=== PATIENT | male | born 1935 | race African-American/Black ===

== ENCOUNTER 2022-05-07 16:09 | Inpatient (IN) | payer OTHER ==
[2022-05-07 16:47] VITALS: BMI 21.9
[2022-05-07 19:26] LABS: BASO % 0.4 % (0-2.0); EOS % 1.8 % (0-4.5); HEMATOCRIT 38.2 % (35.4-49); HEMOGLOBIN 12.5 GM/dL (11.7-16.9); LYMPH % 20.8 % (8-40); MCH 34.4 pg (25.7-33.7); MCHC 32.8 g/dl (32.0-35.9); MEAN CELL VOLUME 104.9 fl (80-96); MEAN PLT VOLUME 8.9 fl (7.5-11.1); PLATELET COUNT 198 10^3/uL (134-434); RBC 3.65 M/mm3 (4.00-5.60); RDW 14.6 % (11.9-15.9); WHITE BLOOD COUNT 5.4 K/mm3 (4.0-10.0)
[2022-05-07 19:45] LABS: INR 1.05 (0.83-1.09); PROTHROMBIN TIME (PATIENT) 12.1 SEC (9.7-13.0)
[2022-05-07 19:47] LABS: ACTIVATED PTT 26.3 SECONDS (25.2-36.5)
[2022-05-07 19:54] LABS: CALCIUM 9.6 mg/dL (8.5-10.1)
[2022-05-07 19:55] LABS: ALBUMIN 3.4 g/dl (3.4-5.0); BLOOD UREA NITROGEN 20.6 mg/dL (7-18)
[2022-05-07 19:58] LABS: CREATININE 1.3 mg/dL (0.55-1.3)
[2022-05-07 20:00] LABS: BILIRUBIN,TOTAL 0.3 mg/dL (0.2-1); TOT PROT 7.9 g/dl (6.4-8.2)
[2022-05-07] MEDS ORDERED: SODIUM CHLORIDE 0.9% 500 ML INFUS.BAG IV ONE (22:58)
[2022-05-08] MEDS ORDERED: HEPARIN NA (PORCINE) 5,000 UNITS/ML 1ML VIAL SQ ONE (00:14)
[2022-05-08] MEDS ORDERED: amLODIPine BESYLATE 2.5 MG TABLET (FP) PO ONE (00:16)
[2022-05-08] MEDS ORDERED: SODIUM CHLORIDE 1,000 ML IV SCH (00:30)
[2022-05-08] MEDS: INSULIN SLIDING SCALE (NOVOLOG) 1 VIAL SQ SCH ×4 (08:05→22:50)
[2022-05-08 08:06] LABS: HEMATOCRIT 34.6 % (35.4-49); HEMOGLOBIN 11.6 GM/dL (11.7-16.9); MCH 34.3 pg (25.7-33.7); MCHC 33.4 g/dl (32.0-35.9); MEAN CELL VOLUME 102.8 fl (80-96); MEAN PLT VOLUME 8.9 fl (7.5-11.1); PLATELET COUNT 190 10^3/uL (134-434); RBC 3.37 M/mm3 (4.00-5.60); RDW 14.7 % (11.9-15.9); WHITE BLOOD COUNT 5.1 K/mm3 (4.0-10.0)
[2022-05-08 08:29] LABS: BLOOD UREA NITROGEN 16.7 mg/dL (7-18); MAGNESIUM 2.1 mg/dL (1.8-2.4)
[2022-05-08 08:30] LABS: CREATININE 1.1 mg/dL (0.55-1.3); PHOSPHOROUS 2.9 mg/dL (2.5-4.9)
[2022-05-08 08:32] LABS: BILIRUBIN,TOTAL 0.6 mg/dL (0.2-1); TOT PROT 6.8 g/dl (6.4-8.2)
[2022-05-08] MEDS: amLODIPine BESYLATE 2.5 MG TABLET (FP) PO SCH (09:41)
[2022-05-08] MEDS: ENOXAPARIN NA (PORCINE) 40 MG/0.4 ML DISP.SYRIN SQ SCH (09:41)
[2022-05-08] MEDS: THIAMINE HCL 100 MG TABLET (FP) PO SCH ×2 (09:41→22:50)
[2022-05-08 12:27] LABS: EPI CELLS 3 /uL (0-25.1); HYALINE CASTS 0 /uL (0-3.1); URINE APPEARANCE CLEAR; URINE BILIRUBIN NEGATIVE (NEGATIVE); URINE COLOR YELLOW; URINE GLUCOSE (UA) NEGATIVE (NEGATIVE); URINE KETONE NEGATIVE (NEGATIVE); URINE LEUK ESTERASE NEGATIVE (NEGATIVE); URINE NITRITE POSITIVE (NEGATIVE); URINE PROTEIN NEGATIVE (NEGATIVE); URINE RBC 16 /uL (0-23.9); URINE UROBILINOGEN 0.2 mg/dL (0.2-1.0); URINE WBC 10 /uL (0-25.8)
[2022-05-08 13:44] LABS: URINE BACTERIA 324 /uL (0-1359)
[2022-05-08] MEDS: metoPROLOL SUCCINATE 25 MG TAB.SR.24H (FP) PO SCH (16:32)
[2022-05-09] MEDS ORDERED: hydrOXYzine PAMOATE 25 MG CAPSULE (FP) PO ONE (01:38)
[2022-05-09] MEDS: INSULIN SLIDING SCALE (NOVOLOG) 1 VIAL SQ SCH ×3 (09:13→16:48)
[2022-05-09] MEDS: ENOXAPARIN NA (PORCINE) 40 MG/0.4 ML DISP.SYRIN SQ SCH (09:39)
[2022-05-09] MEDS: metoPROLOL SUCCINATE 25 MG TAB.SR.24H (FP) PO SCH (09:39)
[2022-05-09] MEDS: amLODIPine BESYLATE 2.5 MG TABLET (FP) PO SCH (09:39)
[2022-05-09] MEDS: THIAMINE HCL 100 MG TABLET (FP) PO SCH ×2 (09:39→21:42)
[2022-05-09 12:19] LABS: HEMATOCRIT 36.6 % (35.4-49); HEMOGLOBIN 12.3 GM/dL (11.7-16.9); MCH 35.3 pg (25.7-33.7); MCHC 33.6 g/dl (32.0-35.9); MEAN CELL VOLUME 105.1 fl (80-96); MEAN PLT VOLUME 8.6 fl (7.5-11.1); PLATELET COUNT 181 10^3/uL (134-434); RBC 3.48 M/mm3 (4.00-5.60); RDW 14.6 % (11.9-15.9); WHITE BLOOD COUNT 5.3 K/mm3 (4.0-10.0)
[2022-05-09 14:31] LABS: ALBUMIN 3.1 g/dl (3.4-5.0); BILIRUBIN,TOTAL 0.4 mg/dL (0.2-1); BLOOD UREA NITROGEN 16.7 mg/dL (7-18); CALCIUM 9.2 mg/dL (8.5-10.1); CHOLESTEROL 195 mg/dL (50-200); CREATININE 1.1 mg/dL (0.55-1.3); HDL CHOLESTEROL 80 mg/dL (40-60); LDL CHOLESTEROL (ONLY SJRH) 98 mg/dL (5-100); TOT PROT 7.4 g/dl (6.4-8.2); TRIGLYCERIDES 90 mg/dL (0-150)
[2022-05-09] MEDS: ATORVASTATIN CA 20 MG TABLET (FP) PO SCH (21:44)
[2022-05-10] MEDS: ASPIRIN 81 MG CHEWABLE TABLETS PO SCH (09:21)
[2022-05-10] MEDS: INSULIN SLIDING SCALE (NOVOLOG) 1 VIAL SQ SCH ×5 (09:21→21:57)
[2022-05-10] MEDS: ENOXAPARIN NA (PORCINE) 40 MG/0.4 ML DISP.SYRIN SQ SCH (09:21)
[2022-05-10] MEDS: amLODIPine BESYLATE 2.5 MG TABLET (FP) PO SCH (09:22)
[2022-05-10] MEDS: THIAMINE HCL 100 MG TABLET (FP) PO SCH ×2 (09:22→21:43)
[2022-05-10] MEDS: metoPROLOL SUCCINATE 25 MG TAB.SR.24H (FP) PO SCH (09:22)
[2022-05-10] MEDS: ATORVASTATIN CA 20 MG TABLET (FP) PO SCH (21:44)
[2022-05-11] MEDS: INSULIN SLIDING SCALE (NOVOLOG) 1 VIAL SQ SCH ×4 (07:33→21:48)
[2022-05-11] MEDS: THIAMINE HCL 100 MG TABLET (FP) PO SCH ×2 (10:00→21:30)
[2022-05-11] MEDS: metoPROLOL SUCCINATE 25 MG TAB.SR.24H (FP) PO SCH (10:00)
[2022-05-11] MEDS: ASPIRIN 81 MG CHEWABLE TABLETS PO SCH (10:00)
[2022-05-11] MEDS: ENOXAPARIN NA (PORCINE) 40 MG/0.4 ML DISP.SYRIN SQ SCH (10:00)
[2022-05-11] MEDS: amLODIPine BESYLATE 2.5 MG TABLET (FP) PO SCH (10:00)
[2022-05-11] MEDS: ATORVASTATIN CA 20 MG TABLET (FP) PO SCH (21:30)
[2022-05-11] MEDS: AMOXICILLIN 500 MG CAPSULE (FP) PO SCH (22:10)
[2022-05-12] MEDS: INSULIN SLIDING SCALE (NOVOLOG) 1 VIAL SQ SCH ×4 (06:15→21:38)
[2022-05-12] MEDS: THIAMINE HCL 100 MG TABLET (FP) PO SCH ×2 (09:51→21:09)
[2022-05-12] MEDS: ENOXAPARIN NA (PORCINE) 40 MG/0.4 ML DISP.SYRIN SQ SCH (09:51)
[2022-05-12] MEDS: ASPIRIN 81 MG CHEWABLE TABLETS PO SCH (09:51)
[2022-05-12] MEDS: amLODIPine BESYLATE 2.5 MG TABLET (FP) PO SCH (09:52)
[2022-05-12] MEDS: metoPROLOL SUCCINATE 25 MG TAB.SR.24H (FP) PO SCH (09:52)
[2022-05-12] MEDS: AMOXICILLIN 500 MG CAPSULE (FP) PO SCH ×2 (09:54→21:09)
[2022-05-12 10:45] LABS: HEMATOCRIT 38.2 % (35.4-49); MCH 35.7 pg (25.7-33.7); MCHC 33.9 g/dl (32.0-35.9); MEAN CELL VOLUME 105.2 fl (80-96); MEAN PLT VOLUME 8.6 fl (7.5-11.1); PLATELET COUNT 229 10^3/uL (134-434); RBC 3.63 M/mm3 (4.00-5.60); RDW 14.2 % (11.9-15.9); WHITE BLOOD COUNT 5.6 K/mm3 (4.0-10.0)
[2022-05-12 11:04] LABS: BLOOD UREA NITROGEN 27.6 mg/dL (7-18)
[2022-05-12 11:06] LABS: CREATININE 1.3 mg/dL (0.55-1.3)
[2022-05-12 11:09] LABS: BILIRUBIN,TOTAL 0.4 mg/dL (0.2-1); TOT PROT 7.4 g/dl (6.4-8.2)
[2022-05-12] MEDS: ATORVASTATIN CA 20 MG TABLET (FP) PO SCH (21:09)
[2022-05-13] MEDS: INSULIN SLIDING SCALE (NOVOLOG) 1 VIAL SQ SCH ×4 (06:13→22:29)
[2022-05-13] MEDS: THIAMINE HCL 100 MG TABLET (FP) PO SCH ×2 (10:23→22:05)
[2022-05-13] MEDS: metoPROLOL SUCCINATE 25 MG TAB.SR.24H (FP) PO SCH (10:23)
[2022-05-13] MEDS: amLODIPine BESYLATE 2.5 MG TABLET (FP) PO SCH (10:23)
[2022-05-13] MEDS: ENOXAPARIN NA (PORCINE) 40 MG/0.4 ML DISP.SYRIN SQ SCH (10:23)
[2022-05-13] MEDS: AMOXICILLIN 500 MG CAPSULE (FP) PO SCH ×2 (10:23→22:05)
[2022-05-13] MEDS: ASPIRIN 81 MG CHEWABLE TABLETS PO SCH (10:23)
[2022-05-13] MEDS: DOCUSATE SODIUM 100 MG CAPSULE (FP) PO SCH ×2 (13:56→22:05)
[2022-05-13] MEDS: POLYETHYLENE GLYCOL (HEALTHYLAX) 3350 17 GM PACKET PO SCH (13:56)
[2022-05-13] MEDS ORDERED: PNEUMOC 20-VAL CONJ-DIP CRM/PF 0.5 ML SYRINGE IM ONE (16:00)
[2022-05-13] MEDS: ATORVASTATIN CA 20 MG TABLET (FP) PO SCH (22:05)
[2022-05-14] MEDS: INSULIN SLIDING SCALE (NOVOLOG) 1 VIAL SQ SCH ×2 (06:33→11:43)
[2022-05-14 06:35] VITALS: RESP 18
[2022-05-14] MEDS: metoPROLOL SUCCINATE 25 MG TAB.SR.24H (FP) PO SCH (11:37)
[2022-05-14] MEDS: POLYETHYLENE GLYCOL (HEALTHYLAX) 3350 17 GM PACKET PO SCH (11:37)
[2022-05-14] MEDS: THIAMINE HCL 100 MG TABLET (FP) PO SCH (11:37)
[2022-05-14] MEDS: ASPIRIN 81 MG CHEWABLE TABLETS PO SCH (11:37)
[2022-05-14] MEDS: ENOXAPARIN NA (PORCINE) 40 MG/0.4 ML DISP.SYRIN SQ SCH (11:37)
[2022-05-14] MEDS: DOCUSATE SODIUM 100 MG CAPSULE (FP) PO SCH (11:38)
[2022-05-14] MEDS: amLODIPine BESYLATE 2.5 MG TABLET (FP) PO SCH (11:38)
[2022-05-14] MEDS: AMOXICILLIN 500 MG CAPSULE (FP) PO SCH (11:39)
[2022-05-14 15:42] VITALS: BP 143/74; PULSE 84; TEMP 98.7
== END 2022-05-14 16:43 | DRG 309 ==
LOC: JER 16:09 → JERBED 21:29 → OBSVTOIN 05-08 00:15 → J4W 05-08 01:05 → J5S 05-11 18:17
PROVIDERS: ADMIT Internal Medicine; ATTEND Internal Medicine
DX: I47.20 Ventricular tachycardia, unspecified (principal); N39.0 Urinary tract infection, site not specified; R55 Syncope and collapse; E11.9 Type 2 diabetes mellitus without complications; F03.90 Unspecified dementia, unspecified severity, without behavioral disturbance, psychotic disturbance, mood disturbance, and anxiety; I10 Essential (primary) hypertension
CPT/HCPCS: 0241U-QW; 36415; 70450-TC; 70544-TC; 71045-TC-FY; 80053; 80061; 81003; 82550; 82553; 82607; 82746; 82962; 83036; 83735; 84100; 84443; 84484; 85025; 85027; 85610; 85730; 86780; 86850; 86900; 86901; 87086; 87186; 90677; 93005; 93010; 93306-TC; 93880-TC; 97116-GP; 97162-GP; 99285-25; C9803-CS; G0378; U0003; U0005

== ENCOUNTER 2022-07-23 21:01 | Inpatient (IN) | payer OTHER ==
[2022-07-23] MEDS ORDERED: SODIUM CHLORIDE 0.9% 500 ML INFUS.BAG IV ONE (21:47)
[2022-07-23] MEDS ORDERED: PIPERACILLIN/TAZOB 4.5 GM 4.5 GM in DEXTROSE 5%-WATER 100 ML IVPB ONE (21:47)
[2022-07-23] MEDS ORDERED: VANCOMYCIN 1 GM in D5W (PRE-DOCKED) 1,000 MG/250 ML IVPB ONE (21:47)
[2022-07-23] MEDS ORDERED: ACETAMINOPHEN 1000 MG/100 ML BAG IVPB ONE (21:47)
[2022-07-23] MEDS ORDERED: ACETAMINOPHEN INJECTION 100 ML IVPB ONE (23:11)
[2022-07-23] MEDS ORDERED: PIPERACILLIN/TAZOB 4.5 GM 4.5 GM/100 ML BAG IVPB ONE (23:12)
[2022-07-23 23:16] LABS: VENOUS BASE EXCESS -7.7 mmol/L (-2-2); VENOUS O2 SATURATION 36.7 % (70-80); VENOUS PCO2 46.7 mmHg (38-52); VENOUS PH 7.24 (7.310-7.410)
[2022-07-23 23:21] LABS: HEMATOCRIT 37.5 % (35.4-49); HEMOGLOBIN 11.8 GM/dL (11.7-16.9); MCH 33.5 pg (25.7-33.7); MCHC 31.6 g/dl (32.0-35.9); MEAN CELL VOLUME 106.1 fl (80-96); MEAN PLT VOLUME 10.7 fl (7.5-11.1); PLATELET COUNT 135 10^3/uL (134-434); RBC 3.54 M/mm3 (4.00-5.60); RDW 13.9 % (11.9-15.9); WHITE BLOOD COUNT 18.6 K/mm3 (4.0-10.0)
[2022-07-23 23:24] LABS: ADD RBC MORPHOLOGY YES
[2022-07-23 23:37] LABS: CHLORIDE 132 mmol/L (98-107)
[2022-07-23 23:39] LABS: ALBUMIN 2.3 g/dl (3.4-5.0); CALCIUM 8.7 mg/dL (8.5-10.1); CO2 21 mmol/L (21-32)
[2022-07-23 23:42] LABS: CREATININE 4.1 mg/dL (0.55-1.3); SGOT/AST 53 U/L (15-37); SGPT/ALT 22 U/L (13-61)
[2022-07-23 23:44] LABS: BILIRUBIN,TOTAL 0.4 mg/dL (0.2-1); TOT PROT 6.9 g/dl (6.4-8.2)
[2022-07-23 23:45] LABS: ALK PHOS 82 U/L (45-117); LACTIC ACID 5.5 mmol/L (0.4-2.0)
[2022-07-23 23:50] LABS: ANION GAP 12 MMOL/L (8-16); BLOOD UREA NITROGEN 137.1 mg/dL (7-18); GLUCOSE,RANDOM 411 mg/dL (74-106); SODIUM 165 mmol/L (136-145)
[2022-07-24] MEDS ORDERED: MIDAZOLAM HCL 5 MG/1 ML Single Dose Vial IVPUSH ONE (00:50)
[2022-07-24] MEDS ORDERED: SODIUM CHLORIDE 0.45% 1,000 ML IV SCH (01:15)
[2022-07-24] MEDS ORDERED: MIDAZOLAM HCL 5 MG/1 ML Single Dose Vial ONE (01:24)
[2022-07-24] MEDS ORDERED: MIDAZOLAM HCL 2 MG/2 ML SINGLE DOSE VIAL IVPUSH ONE (02:26)
[2022-07-24] MEDS: MUPIROCIN 2% TOPICAL OINTMENT FOR DECOLONIZATION NS SCH ×3 (02:38→21:06)
[2022-07-24] MEDS: INSULIN SLIDING SCALE (NOVOLOG) 1 VIAL SQ SCH ×6 (02:45→21:43)
[2022-07-24] MEDS ORDERED: INSULIN SLIDING SCALE (NOVOLOG) 1 VIAL SQ SCH (07:00)
[2022-07-24 07:31] LABS: TOXIC GRANULATION 3+
[2022-07-24 07:32] LABS: ANISOCYTOSIS 0; MACROCYTOSIS 1+
[2022-07-24 08:56] LABS: BASO % 0.1 % (0-2.0); HEMATOCRIT 38.9 % (35.4-49); HEMOGLOBIN 12.1 GM/dL (11.7-16.9); LYMPH % 9.2 % (8-40); MCH 33.1 pg (25.7-33.7); MCHC 31.2 g/dl (32.0-35.9); MEAN PLT VOLUME 10.2 fl (7.5-11.1); MONO % 2.8 % (3.8-10.2); NEUT % 87.9 % (42.8-82.8); PLATELET COUNT 125 10^3/uL (134-434); RBC 3.67 M/mm3 (4.00-5.60); RDW 14.1 % (11.9-15.9)
[2022-07-24 08:59] LABS: INR 1.22 (0.83-1.09); PROTHROMBIN TIME (PATIENT) 14.1 SEC (9.7-13.0)
[2022-07-24] MEDS ORDERED: PIPERACILLIN/TAZOB 2.25 GM 2.25 GM in DEXTROSE 5%-WATER - 50 ML IVPB SCH (09:00)
[2022-07-24 09:13] LABS: CHLORIDE 131 mmol/L (98-107)
[2022-07-24 09:18] LABS: CALCIUM 8.6 mg/dL (8.5-10.1); GLUCOSE,RANDOM 398 mg/dL (74-106)
[2022-07-24 09:19] LABS: ALBUMIN 2.4 g/dl (3.4-5.0); CO2 20 mmol/L (21-32); MAGNESIUM 3.6 mg/dL (1.8-2.4)
[2022-07-24 09:21] LABS: LACTIC ACID 3.4 mmol/L (0.4-2.0); PHOSPHOROUS 5.8 mg/dL (2.5-4.9); SGPT/ALT 32 U/L (13-61)
[2022-07-24 09:22] LABS: CREATININE 3.8 mg/dL (0.55-1.3); SGOT/AST 84 U/L (15-37)
[2022-07-24 09:23] LABS: BILIRUBIN,TOTAL 0.4 mg/dL (0.2-1)
[2022-07-24 09:24] LABS: ALK PHOS 86 U/L (45-117)
[2022-07-24] MEDS: PANTOPRAZOLE SODIUM 40 MG VIAL IVPUSH SCH (09:29)
[2022-07-24 09:30] LABS: ANION GAP 13 MMOL/L (8-16); BLOOD UREA NITROGEN 133.3 mg/dL (7-18); SODIUM 164 mmol/L (136-145)
[2022-07-24] MEDS ORDERED: DEXTROSE 5%-0.45% SALINE 1,000 ML IV SCH (11:45)
[2022-07-24] MEDS ORDERED: POTASSIUM CHLORIDE 10 MEQ in SODIUM CHLORIDE 0.45% 1,000 ML IVPB SCH (12:00)
[2022-07-24 14:09] LABS: CHLORIDE 137 mmol/L (98-107)
[2022-07-24 14:10] LABS: CALCIUM 8.9 mg/dL (8.5-10.1)
[2022-07-24 14:11] LABS: ALBUMIN 2.4 g/dl (3.4-5.0); CO2 24 mmol/L (21-32); GLUCOSE,RANDOM 77 mg/dL (74-106)
[2022-07-24 14:13] LABS: SGPT/ALT 33 U/L (13-61)
[2022-07-24 14:14] LABS: CREATININE 3.2 mg/dL (0.55-1.3); SGOT/AST 89 U/L (15-37)
[2022-07-24 14:15] LABS: BILIRUBIN,TOTAL 0.6 mg/dL (0.2-1); TOT PROT 7.2 g/dl (6.4-8.2)
[2022-07-24 14:17] LABS: ALK PHOS 85 U/L (45-117)
[2022-07-24 14:21] LABS: ANION GAP 7 MMOL/L (8-16); BLOOD UREA NITROGEN 119.9 mg/dL (7-18); SODIUM 168 mmol/L (136-145)
[2022-07-24] MEDS: PIPERACILLIN/TAZOB 2.25 GM 2.25 GM in DEXTROSE 5%-WATER - 50 ML IVPB SCH ×2 (15:54→21:06)
[2022-07-24] MEDS: DEXTROSE 5%-0.2% SALINE - 1,000 ML IV SCH (18:15)
[2022-07-24 18:39] LABS: EPI CELLS 3 /uL (0-25.1); HYALINE CASTS 0 /uL (0-3.1); URINE APPEARANCE TURBID; URINE BACTERIA 48 /uL (0-1359); URINE BILIRUBIN NEGATIVE (NEGATIVE); URINE COLOR RED; URINE GLUCOSE (UA) NEGATIVE (NEGATIVE); URINE KETONE NEGATIVE (NEGATIVE); URINE LEUK ESTERASE 3+ (NEGATIVE); URINE NITRITE NEGATIVE (NEGATIVE); URINE PROTEIN 2+ (NEGATIVE); URINE UROBILINOGEN 0.2 mg/dL (0.2-1.0); URINE WBC 4256 /uL (0-25.8)
[2022-07-24 19:45] LABS: YEAST NONE SEEN (NEGATIVE)
[2022-07-24 19:46] LABS: URINE RBC 11824.9 /uL (0-23.9)
[2022-07-24] MEDS: CHLORHEXIDINE GLUCONATE 4% CLEANSER FOR DECOLONIZATION TP SCH (21:06)
[2022-07-25] MEDS: PIPERACILLIN/TAZOB 2.25 GM 2.25 GM in DEXTROSE 5%-WATER - 50 ML IVPB SCH ×4 (03:28→21:11)
[2022-07-25] MEDS: INSULIN SLIDING SCALE (NOVOLOG) 1 VIAL SQ SCH ×4 (06:28→21:21)
[2022-07-25 08:41] LABS: BASO % 0.2 % (0-2.0); EOS % 0.5 % (0-4.5); HEMATOCRIT 35.9 % (35.4-49); HEMOGLOBIN 11.3 GM/dL (11.7-16.9); LYMPH % 6.2 % (8-40); MCH 33.2 pg (25.7-33.7); MCHC 31.5 g/dl (32.0-35.9); MEAN CELL VOLUME 105.3 fl (80-96); MEAN PLT VOLUME 10.5 fl (7.5-11.1); MONO % 2.7 % (3.8-10.2); NEUT % 90.4 % (42.8-82.8); PLATELET COUNT 108 10^3/uL (134-434); RBC 3.41 M/mm3 (4.00-5.60); WHITE BLOOD COUNT 17.8 K/mm3 (4.0-10.0)
[2022-07-25 09:04] LABS: CHLORIDE 135 mmol/L (98-107)
[2022-07-25 09:06] LABS: CALCIUM 8.9 mg/dL (8.5-10.1)
[2022-07-25 09:07] LABS: ALBUMIN 2.3 g/dl (3.4-5.0); BLOOD UREA NITROGEN 98.1 mg/dL (7-18); CO2 20 mmol/L (21-32); GLUCOSE,RANDOM 357 mg/dL (74-106)
[2022-07-25 09:10] LABS: CREATININE 2.5 mg/dL (0.55-1.3); PHOSPHOROUS 3.1 mg/dL (2.5-4.9); SGOT/AST 78 U/L (15-37); SGPT/ALT 36 U/L (13-61)
[2022-07-25 09:11] LABS: BILIRUBIN,TOTAL 0.5 mg/dL (0.2-1); TOT PROT 6.9 g/dl (6.4-8.2)
[2022-07-25 09:13] LABS: ALK PHOS 83 U/L (45-117)
[2022-07-25 09:14] LABS: ANION GAP 9 MMOL/L (8-16); SODIUM 164 mmol/L (136-145)
[2022-07-25] MEDS: MUPIROCIN 2% TOPICAL OINTMENT FOR DECOLONIZATION NS SCH ×2 (09:40→21:11)
[2022-07-25] MEDS: PANTOPRAZOLE SODIUM 40 MG VIAL IVPUSH SCH (09:41)
[2022-07-25] MEDS: DEXTROSE 5%-0.2% SALINE - 1,000 ML IV SCH (16:51)
[2022-07-25] MEDS: CHLORHEXIDINE GLUCONATE 4% CLEANSER FOR DECOLONIZATION TP SCH (21:11)
[2022-07-26] MEDS: PIPERACILLIN/TAZOB 2.25 GM 2.25 GM in DEXTROSE 5%-WATER - 50 ML IVPB SCH ×2 (02:34→09:30)
[2022-07-26] MEDS: INSULIN SLIDING SCALE (NOVOLOG) 1 VIAL SQ SCH ×4 (06:36→21:03)
[2022-07-26 07:38] LABS: HEMOGLOBIN 11.3 GM/dL (11.7-16.9); MCHC 30.5 g/dl (32.0-35.9); MEAN CELL VOLUME 104.9 fl (80-96); MEAN PLT VOLUME 10.2 fl (7.5-11.1); PLATELET COUNT 89 10^3/uL (134-434); RBC 3.53 M/mm3 (4.00-5.60); RDW 14.5 % (11.9-15.9); WHITE BLOOD COUNT 13.3 K/mm3 (4.0-10.0)
[2022-07-26 07:58] LABS: CHLORIDE 138 mmol/L (98-107)
[2022-07-26 08:03] LABS: ALBUMIN 2.4 g/dl (3.4-5.0); CALCIUM 9.5 mg/dL (8.5-10.1); CO2 23 mmol/L (21-32); MAGNESIUM 3.6 mg/dL (1.8-2.4)
[2022-07-26 08:04] LABS: GLUCOSE,RANDOM 296 mg/dL (74-106)
[2022-07-26 08:06] LABS: CREATININE 2.1 mg/dL (0.55-1.3); PHOSPHOROUS 2.9 mg/dL (2.5-4.9); SGPT/ALT 40 U/L (13-61)
[2022-07-26 08:07] LABS: SGOT/AST 60 U/L (15-37)
[2022-07-26 08:08] LABS: BILIRUBIN,TOTAL 0.5 mg/dL (0.2-1)
[2022-07-26 08:09] LABS: ALK PHOS 85 U/L (45-117)
[2022-07-26 08:17] LABS: ANION GAP 7 MMOL/L (8-16); SODIUM 168 mmol/L (136-145)
[2022-07-26] MEDS: PANTOPRAZOLE SODIUM 40 MG VIAL IVPUSH SCH (09:30)
[2022-07-26] MEDS: MUPIROCIN 2% TOPICAL OINTMENT FOR DECOLONIZATION NS SCH (09:30)
[2022-07-26] MEDS: DEXTROSE 5%-WATER - 1,000 ML IV SCH ×2 (10:43→18:03)
[2022-07-26] MEDS: CEFTRIAXONE 2 GM in DEXTROSE 5%-WATER 100 ML IVPB SCH (11:28)
[2022-07-26] MEDS ORDERED: MUPIROCIN 2% TOPICAL OINTMENT FOR DECOLONIZATION NS SCH (22:00)
[2022-07-26] MEDS ORDERED: CHLORHEXIDINE GLUCONATE 4% CLEANSER FOR DECOLONIZATION TP SCH (22:00)
[2022-07-27] MEDS: INSULIN SLIDING SCALE (NOVOLOG) 1 VIAL SQ SCH ×4 (06:22→21:53)
[2022-07-27] MEDS: MULTIVITAMINS (DAILY MVI) TABLET (FP) PO SCH (09:46)
[2022-07-27] MEDS: PANTOPRAZOLE SODIUM 40 MG VIAL IVPUSH SCH (09:46)
[2022-07-27] MEDS: DEXTROSE 5%-WATER - 1,000 ML IV SCH ×2 (09:46→13:21)
[2022-07-27] MEDS: CEFTRIAXONE 2 GM in DEXTROSE 5%-WATER 100 ML IVPB SCH (09:46)
[2022-07-27 09:57] LABS: HEMATOCRIT 32.2 % (35.4-49); HEMOGLOBIN 10.1 GM/dL (11.7-16.9); MCH 32.7 pg (25.7-33.7); MCHC 31.3 g/dl (32.0-35.9); MEAN CELL VOLUME 104.4 fl (80-96); MEAN PLT VOLUME 10.7 fl (7.5-11.1); PLATELET COUNT 76 10^3/uL (134-434); RBC 3.09 M/mm3 (4.00-5.60); RDW 14.4 % (11.9-15.9); WHITE BLOOD COUNT 14.1 K/mm3 (4.0-10.0)
[2022-07-27 10:01] LABS: CHLORIDE 140 mmol/L (98-107)
[2022-07-27 10:05] LABS: ALBUMIN 2.2 g/dl (3.4-5.0); BLOOD UREA NITROGEN 51.2 mg/dL (7-18); CO2 21 mmol/L (21-32); GLUCOSE,RANDOM 302 mg/dL (74-106); MAGNESIUM 3.3 mg/dL (1.8-2.4)
[2022-07-27 10:08] LABS: CREATININE 1.9 mg/dL (0.55-1.3); PHOSPHOROUS 2.1 mg/dL (2.5-4.9); SGOT/AST 37 U/L (15-37); SGPT/ALT 36 U/L (13-61)
[2022-07-27 10:09] LABS: TOT PROT 6.7 g/dl (6.4-8.2)
[2022-07-27 10:10] LABS: BILIRUBIN,TOTAL 0.3 mg/dL (0.2-1)
[2022-07-27 10:11] LABS: ALK PHOS 83 U/L (45-117)
[2022-07-27 10:16] LABS: ANION GAP 6 MMOL/L (8-16); SODIUM 167 mmol/L (136-145)
[2022-07-27] MEDS ORDERED: INSULIN (NOVOLOG) ASPART 100 UNITS/ML 10ML VIAL ONE ×2 (10:41→16:34)
[2022-07-27] MEDS: POTASSIUM CHLORIDE 10 MEQ in SODIUM CHLORIDE 0.45% 1,000 ML IVPB SCH (20:27)
[2022-07-28] MEDS: POTASSIUM CHLORIDE 10 MEQ in SODIUM CHLORIDE 0.45% 1,000 ML IVPB SCH ×2 (04:30→13:50)
[2022-07-28] MEDS: INSULIN SLIDING SCALE (NOVOLOG) 1 VIAL SQ SCH ×4 (06:31→21:31)
[2022-07-28 09:40] LABS: HEMATOCRIT 33.3 % (35.4-49); HEMOGLOBIN 10.2 GM/dL (11.7-16.9); MCH 32.4 pg (25.7-33.7); MCHC 30.6 g/dl (32.0-35.9); MEAN CELL VOLUME 105.7 fl (80-96); MEAN PLT VOLUME 11.1 fl (7.5-11.1); PLATELET COUNT 87 10^3/uL (134-434); RBC 3.15 M/mm3 (4.00-5.60); RDW 14.7 % (11.9-15.9); WHITE BLOOD COUNT 15.6 K/mm3 (4.0-10.0)
[2022-07-28 09:58] LABS: CHLORIDE 136 mmol/L (98-107)
[2022-07-28 10:00] LABS: CALCIUM 9.1 mg/dL (8.5-10.1)
[2022-07-28 10:01] LABS: ALBUMIN 2.2 g/dl (3.4-5.0); BLOOD UREA NITROGEN 40.7 mg/dL (7-18); CO2 21 mmol/L (21-32); GLUCOSE,RANDOM 303 mg/dL (74-106)
[2022-07-28 10:04] LABS: CREATININE 1.9 mg/dL (0.55-1.3); PHOSPHOROUS 2.1 mg/dL (2.5-4.9); SGOT/AST 43 U/L (15-37); SGPT/ALT 39 U/L (13-61)
[2022-07-28 10:05] LABS: BILIRUBIN,TOTAL 0.4 mg/dL (0.2-1); TOT PROT 6.8 g/dl (6.4-8.2)
[2022-07-28 10:07] LABS: ALK PHOS 87 U/L (45-117)
[2022-07-28] MEDS: MULTIVITAMINS (DAILY MVI) TABLET (FP) PO SCH (10:15)
[2022-07-28] MEDS: CEFTRIAXONE 1 GM in DEXTROSE 5%-WATER - 50 ML IVPB SCH (10:15)
[2022-07-28] MEDS: PANTOPRAZOLE SODIUM 40 MG VIAL IVPUSH SCH (10:15)
[2022-07-28 10:17] LABS: ANION GAP 9 MMOL/L (8-16); SODIUM 166 mmol/L (136-145)
[2022-07-28 17:46] VITALS: BMI 19.8
[2022-07-28] MEDS ORDERED: INSULIN (NOVOLOG) ASPART 100 UNITS/ML 10ML VIAL ONE (21:28)
[2022-07-29] MEDS: POTASSIUM CHLORIDE 10 MEQ in SODIUM CHLORIDE 0.45% 1,000 ML IVPB SCH ×3 (03:00→10:15)
[2022-07-29] MEDS: INSULIN SLIDING SCALE (NOVOLOG) 1 VIAL SQ SCH ×4 (06:13→22:32)
[2022-07-29 08:22] LABS: BASO % 0.1 % (0-2.0); HEMATOCRIT 30.8 % (35.4-49); HEMOGLOBIN 9.8 GM/dL (11.7-16.9); LYMPH % 16.2 % (8-40); MCH 33.1 pg (25.7-33.7); MCHC 31.8 g/dl (32.0-35.9); MEAN CELL VOLUME 104.4 fl (80-96); MEAN PLT VOLUME 10.7 fl (7.5-11.1); NEUT % 76.7 % (42.8-82.8); PLATELET COUNT 92 10^3/uL (134-434); RBC 2.95 M/mm3 (4.00-5.60); RDW 14.4 % (11.9-15.9)
[2022-07-29 08:42] LABS: CHLORIDE 138 mmol/L (98-107)
[2022-07-29 08:47] LABS: CALCIUM 8.5 mg/dL (8.5-10.1); CO2 22 mmol/L (21-32); GLUCOSE,RANDOM 199 mg/dL (74-106); MAGNESIUM 2.8 mg/dL (1.8-2.4)
[2022-07-29 08:49] LABS: SGPT/ALT 38 U/L (13-61)
[2022-07-29 08:50] LABS: CREATININE 1.7 mg/dL (0.55-1.3); PHOSPHOROUS 2.3 mg/dL (2.5-4.9); SGOT/AST 37 U/L (15-37)
[2022-07-29 08:51] LABS: BILIRUBIN,TOTAL 0.4 mg/dL (0.2-1); TOT PROT 6.3 g/dl (6.4-8.2)
[2022-07-29 08:52] LABS: ALK PHOS 76 U/L (45-117); ANION GAP 4 MMOL/L (8-16); SODIUM 165 mmol/L (136-145)
[2022-07-29] MEDS: PANTOPRAZOLE SODIUM 40 MG VIAL IVPUSH SCH (09:06)
[2022-07-29] MEDS: MULTIVITAMINS (DAILY MVI) TABLET (FP) PO SCH (09:06)
[2022-07-29] MEDS: CEFTRIAXONE 1 GM in DEXTROSE 5%-WATER - 50 ML IVPB SCH (09:06)
[2022-07-29] MEDS ORDERED: INSULIN (NOVOLOG) ASPART 100 UNITS/ML 10ML VIAL ONE (10:57)
[2022-07-29] MEDS ORDERED: INSULIN (LEVEMIR) 100 UNITS/ML UNITS SQ ONE (13:02)
[2022-07-29] MEDS: POTASSIUM CHLORIDE 10 MEQ in DEXTROSE 5%-WATER - 1,000 ML IV SCH (14:04)
[2022-07-30] MEDS: POTASSIUM CHLORIDE 10 MEQ in DEXTROSE 5%-WATER - 1,000 ML IV SCH ×3 (02:56→15:14)
[2022-07-30] MEDS: INSULIN SLIDING SCALE (NOVOLOG) 1 VIAL SQ SCH ×4 (06:09→21:30)
[2022-07-30] MEDS ORDERED: INSULIN (LEVEMIR) 100 UNITS/ML UNITS SQ ONE (09:17)
[2022-07-30] MEDS: CEFTRIAXONE 1 GM in DEXTROSE 5%-WATER - 50 ML IVPB SCH (10:36)
[2022-07-30] MEDS: PANTOPRAZOLE SODIUM 40 MG VIAL IVPUSH SCH (10:37)
[2022-07-30] MEDS: MULTIVITAMINS (DAILY MVI) TABLET (FP) PO SCH (10:40)
[2022-07-30 11:13] LABS: HEMATOCRIT 29.4 % (35.4-49); HEMOGLOBIN 9.1 GM/dL (11.7-16.9); MCH 32.7 pg (25.7-33.7); MCHC 31.1 g/dl (32.0-35.9); MEAN CELL VOLUME 105.1 fl (80-96); MEAN PLT VOLUME 10.9 fl (7.5-11.1); PLATELET COUNT 81 10^3/uL (134-434); RDW 14.4 % (11.9-15.9); WHITE BLOOD COUNT 10.5 K/mm3 (4.0-10.0)
[2022-07-30 11:44] LABS: CALCIUM 8.5 mg/dL (8.5-10.1)
[2022-07-30 11:46] LABS: ALBUMIN 1.9 g/dl (3.4-5.0); BLOOD UREA NITROGEN 22.8 mg/dL (7-18); MAGNESIUM 2.6 mg/dL (1.8-2.4)
[2022-07-30 11:49] LABS: CREATININE 1.8 mg/dL (0.55-1.3); PHOSPHOROUS 2.4 mg/dL (2.5-4.9)
[2022-07-30 11:50] LABS: BILIRUBIN,TOTAL 0.5 mg/dL (0.2-1)
[2022-07-30] MEDS: FAMOTIDINE 10 MG TABLET PO SCH (21:21)
[2022-07-30] MEDS: CEPHALEXIN MONOHYDRATE 500 MG CAPSULE (UD) PO SCH (21:21)
[2022-07-31] MEDS: POTASSIUM CHLORIDE 10 MEQ in DEXTROSE 5%-WATER - 1,000 ML IV SCH ×2 (04:07→16:52)
[2022-07-31] MEDS: INSULIN SLIDING SCALE (NOVOLOG) 1 VIAL SQ SCH ×4 (06:11→21:17)
[2022-07-31] MEDS: CEPHALEXIN MONOHYDRATE 500 MG CAPSULE (UD) PO SCH ×3 (06:12→21:17)
[2022-07-31] MEDS: MULTIVITAMINS (DAILY MVI) TABLET (FP) PO SCH (11:26)
[2022-07-31] MEDS: FAMOTIDINE 10 MG TABLET PO SCH (11:26)
[2022-08-01] MEDS: POTASSIUM CHLORIDE 10 MEQ in DEXTROSE 5%-WATER - 1,000 ML IV SCH ×2 (03:02→15:52)
[2022-08-01] MEDS: CEPHALEXIN MONOHYDRATE 500 MG CAPSULE (UD) PO SCH ×3 (05:59→21:04)
[2022-08-01] MEDS: INSULIN SLIDING SCALE (NOVOLOG) 1 VIAL SQ SCH ×4 (06:00→21:03)
[2022-08-01] MEDS: FAMOTIDINE 10 MG TABLET PO SCH (10:01)
[2022-08-01] MEDS: MULTIVITAMINS (DAILY MVI) TABLET (FP) PO SCH (10:01)
[2022-08-01 16:34] LABS: HEMATOCRIT 31.1 % (35.4-49); HEMOGLOBIN 9.8 GM/dL (11.7-16.9); MCH 32.8 pg (25.7-33.7); MCHC 31.5 g/dl (32.0-35.9); PLATELET COUNT 103 10^3/uL (134-434); RBC 2.99 M/mm3 (4.00-5.60); RDW 14.3 % (11.9-15.9); WHITE BLOOD COUNT 9.7 K/mm3 (4.0-10.0)
[2022-08-01 16:54] LABS: CALCIUM 8.8 mg/dL (8.5-10.1)
[2022-08-01 16:55] LABS: ALBUMIN 1.9 g/dl (3.4-5.0); BLOOD UREA NITROGEN 28.4 mg/dL (7-18)
[2022-08-01 17:00] LABS: BILIRUBIN,TOTAL 0.8 mg/dL (0.2-1); TOT PROT 6.4 g/dl (6.4-8.2)
[2022-08-02] MEDS: POTASSIUM CHLORIDE 10 MEQ in DEXTROSE 5%-WATER - 1,000 ML IV SCH ×4 (03:41→23:47)
[2022-08-02] MEDS: CEPHALEXIN MONOHYDRATE 500 MG CAPSULE (UD) PO SCH ×2 (05:48→13:45)
[2022-08-02] MEDS: INSULIN SLIDING SCALE (NOVOLOG) 1 VIAL SQ SCH ×4 (06:03→23:45)
[2022-08-02] MEDS: MULTIVITAMINS (DAILY MVI) TABLET (FP) PO SCH (10:01)
[2022-08-02] MEDS: FAMOTIDINE 10 MG TABLET PO SCH (10:01)
[2022-08-02] MEDS ORDERED: INSULIN (NOVOLOG) ASPART 100 UNITS/ML 10ML VIAL ONE ×2 (10:37→18:48)
[2022-08-02 12:03] LABS: CHLORIDE 129 mmol/L (98-107)
[2022-08-02 12:04] LABS: CALCIUM 9.1 mg/dL (8.5-10.1)
[2022-08-02 12:05] LABS: BLOOD UREA NITROGEN 28.3 mg/dL (7-18); CO2 22 mmol/L (21-32); GLUCOSE,RANDOM 279 mg/dL (74-106)
[2022-08-02 12:07] LABS: ALBUMIN 1.9 g/dl (3.4-5.0)
[2022-08-02 12:08] LABS: SGOT/AST 24 U/L (15-37); SGPT/ALT 25 U/L (13-61)
[2022-08-02 12:09] LABS: BILIRUBIN,TOTAL 0.4 mg/dL (0.2-1)
[2022-08-02 12:11] LABS: ALK PHOS 80 U/L (45-117); TOT PROT 6.7 g/dl (6.4-8.2)
[2022-08-02 12:17] LABS: ANION GAP 10 MMOL/L (8-16); SODIUM 161 mmol/L (136-145)
[2022-08-03] MEDS: INSULIN SLIDING SCALE (NOVOLOG) 1 VIAL SQ SCH ×4 (06:39→21:29)
[2022-08-03 07:24] VITALS: RESP 20
[2022-08-03 10:19] LABS: CALCIUM 8.9 mg/dL (8.5-10.1)
[2022-08-03 10:21] LABS: ALBUMIN 1.8 g/dl (3.4-5.0); BLOOD UREA NITROGEN 24.5 mg/dL (7-18)
[2022-08-03 10:23] LABS: CREATININE 1.8 mg/dL (0.55-1.3)
[2022-08-03 10:25] LABS: BILIRUBIN,TOTAL 0.5 mg/dL (0.2-1); TOT PROT 6.5 g/dl (6.4-8.2)
[2022-08-03] MEDS: MULTIVITAMINS (DAILY MVI) TABLET (FP) PO SCH (11:07)
[2022-08-03] MEDS: FAMOTIDINE 10 MG TABLET PO SCH (11:07)
[2022-08-03] MEDS: POTASSIUM CHLORIDE 10 MEQ in DEXTROSE 5%-WATER - 1,000 ML IV SCH ×2 (11:49→21:29)
[2022-08-04] MEDS: POTASSIUM CHLORIDE 10 MEQ in DEXTROSE 5%-WATER - 1,000 ML IV SCH ×5 (01:05→22:51)
[2022-08-04] MEDS: INSULIN SLIDING SCALE (NOVOLOG) 1 VIAL SQ SCH ×4 (06:07→22:02)
[2022-08-04] MEDS ORDERED: INSULIN (NOVOLOG) ASPART 100 UNITS/ML 10ML VIAL ONE ×2 (07:33→11:27)
[2022-08-04] MEDS: MULTIVITAMINS (DAILY MVI) TABLET (FP) PO SCH (09:14)
[2022-08-04] MEDS: FAMOTIDINE 10 MG TABLET PO SCH (09:14)
[2022-08-04 10:57] LABS: CALCIUM 8.8 mg/dL (8.5-10.1)
[2022-08-04 10:58] LABS: BLOOD UREA NITROGEN 22.8 mg/dL (7-18)
[2022-08-04 11:01] LABS: CREATININE 1.7 mg/dL (0.55-1.3)
[2022-08-05] MEDS: POTASSIUM CHLORIDE 10 MEQ in DEXTROSE 5%-WATER - 1,000 ML IV SCH ×2 (06:29→09:59)
[2022-08-05] MEDS: INSULIN SLIDING SCALE (NOVOLOG) 1 VIAL SQ SCH ×2 (06:35→11:19)
[2022-08-05] MEDS: MULTIVITAMINS (DAILY MVI) TABLET (FP) PO SCH (09:24)
[2022-08-05] MEDS: FAMOTIDINE 10 MG TABLET PO SCH (09:25)
[2022-08-05] MEDS ORDERED: INSULIN (NOVOLOG) ASPART 100 UNITS/ML 10ML VIAL ONE (11:12)
[2022-08-05 11:17] LABS: CALCIUM 8.4 mg/dL (8.5-10.1)
[2022-08-05 11:21] LABS: CREATININE 2.2 mg/dL (0.55-1.3)
[2022-08-05] MEDS ORDERED: POTASSIUM CHLORIDE 10 MEQ in DEXTROSE 5%-WATER - 1,000 ML IV SCH (13:27)
[2022-08-05 16:35] VITALS: BP 130/65; PULSE 110; TEMP 98.7
== END 2022-08-05 16:37 | DRG 871 ==
LOC: JER 21:01 → JERBED 21:50 → JICU 07-24 02:35 → J6S 07-26 16:08
PROVIDERS: ADMIT Internal Medicine Pulmonary Disease; ATTEND Family Medicine
PROC: 0T9B30Z Drainage of Bladder with Drainage Device, Percutaneous Approach (ICD-10-PCS; principal; 2022-07-24)
DX: A41.89 Other specified sepsis (principal); E11.10 Type 2 diabetes mellitus with ketoacidosis without coma; R65.21 Severe sepsis with septic shock; G93.41 Metabolic encephalopathy; N17.9 Acute kidney failure, unspecified; E87.0 Hyperosmolality and hypernatremia; I24.8 Other forms of acute ischemic heart disease; N13.6 Pyonephrosis; I25.10 Atherosclerotic heart disease of native coronary artery without angina pectoris; N32.89 Other specified disorders of bladder; I10 Essential (primary) hypertension; D72.829 Elevated white blood cell count, unspecified; R31.9 Hematuria, unspecified; F03.90 Unspecified dementia, unspecified severity, without behavioral disturbance, psychotic disturbance, mood disturbance, and anxiety; R77.8 Other specified abnormalities of plasma proteins; R33.9 Retention of urine, unspecified; E86.0 Dehydration; D69.6 Thrombocytopenia, unspecified; E11.65 Type 2 diabetes mellitus with hyperglycemia; Z86.73 Personal history of transient ischemic attack (TIA), and cerebral infarction without residual deficits; Z91.14 Patient's other noncompliance with medication regimen
CPT/HCPCS: 0241U-QW; 36415; 51102; 70450-TC; 71045-TC-FY; 71250-TC; 74176-TC; 80048; 80053; 81003; 82010; 82553; 82803; 82962; 83605; 83735; 84100; 84484; 85025; 85027; 85610; 85730; 86850; 86900; 86901; 87040; 87086; 87102; 87116; 87186; 87210; 93005; 93010; 99291; 99292; C9803-CS; U0003; U0005